=== PATIENT | female | born 1975 | race African-American/Black ===

== ENCOUNTER 2020-04-20 09:09 | Emergency (ER) | payer OTHER, SELFPAY ==
--- NOTE | 2020-04-20 10:07 | RAD ---
EXAM: Single view of the chest HISTORY: Cough and body aches. Covid exposures x2 COMPARISON: None FINDINGS: Single view of the chest shows a normal sized cardiomediastinal silhouette. There is no maliha dence of consolidation, mass, or pleural effusion. The bones are unremarkable IMPRESSION: No evidence of acute cardiopulmonary disease
[2020-04-20] MEDS ORDERED: Aspirin Chewable 81 MG TAB ONE (10:28)
[2020-04-20 10:54] LABS: #Eosinphils 0.2 thou/uL (0.0-0.7); #Lymphocytes 2.2 thou/uL (1.20-3.40); #Monocytes 0.5 thou/uL (0.11-0.59); #Neutrophils 4.6 thou/uL (1.40-6.50); %Basophils 0.6 % (0.0-1.0); %Eosinophils 2.3 % (0.0-10.0); %Lymphocytes 29.1 % (21.0-51.0); %Monocytes 7.2 % (0.0-10.0); %Neutrophils 60.9 % (42.0-75.0); Hemoglobin 10.9 g/dL (12.0-16.0); Mean Corpuscular Volume 77.9 fL (78.0-98.0); Mean Platelet Volume 9.2 fL (7.4-10.4); Platelet Count 347 thou/uL (130-400); RBC Distribution Width 16.9 % (11.5-14.5); Red Blood Cell (RBC) Count 4.36 mill/uL (4.20-5.40); White Blood Cell (WBC) Count 7.5 thou/uL (4.8-10.8)
[2020-04-20 11:04] LABS: BHCG - Serum Negative (NEGATIVE); Pregs Control Background? CLEAR/WHITE (CLR/WHITE); Pregs Control Bar Appear? YES (CONTROL BAR)
[2020-04-20 11:23] LABS: ALT (SGPT) 25 U/L (8-55); AST (SGOT) 36 U/L (5-34); Albumin 3.9 g/dL (3.5-5.0); Alkaline Phosphatase 86 U/L (40-110); Anion Gap 13 mmol/L (10-20); BUN (Urea Nitrogen) 11 mg/dL (7.0-18.7); Bilirubin, Total 0.3 mg/dL (0.2-1.2); Calc. Creatinine Clearance 0 mL/min (70-130); Calcium 9.3 mg/dL (7.8-10.44); Carbon Dioxide 19 mmol/L (22-29); Chloride 109 mmol/L (98-107); Estimated GFR-MDRD 78; Globulin 3.9 g/dL (2.4-3.5); Glucose 88 mg/dL (70-105); Potassium 4.4 mmol/L (3.5-5.1); Protein, Total 7.8 g/dL (6.0-8.3); Sodium 137 mmol/L (136-145)
[2020-04-20] MEDS ORDERED: Dexamethasone 10 MG/ML VIAL ONE (12:01)
== END 2020-04-20 12:28 | disposition home or self-care (01) ==
LOC: ERS 09:09
DX: R05 Cough (principal); R06.02 Shortness of breath; R50.9 Fever, unspecified; R53.81 Other malaise; F19.11 Other psychoactive substance abuse, in remission; Z20.828 Contact with and (suspected) exposure to other viral communicable diseases; Z86.59 Personal history of other mental and behavioral disorders; F31.9 Bipolar disorder, unspecified; F41.9 Anxiety disorder, unspecified; G47.00 Insomnia, unspecified; F17.210 Nicotine dependence, cigarettes, uncomplicated; F43.10 Post-traumatic stress disorder, unspecified
CPT/HCPCS: 71045; 80053; 83605; 83880; 84484; 84703; 85025; 93005; 94760; 96361; 96374; J1100

== ENCOUNTER 2024-10-19 08:37 | Outpatient (CLI) | payer OTHER | END 2024-10-19 08:38 | disposition home or self-care (01) | LOC: BICMAMMO 08:37 | PROVIDERS: ATTEND Nurse Practitioner Family | DX: Z12.31 Encounter for screening mammogram for malignant neoplasm of breast (principal) | CPT/HCPCS: 77063; 77067 ==